=== PATIENT | female | born 1995 ===

== ENCOUNTER 2016-05-13 02:14 | Emergency (ER) | payer OTHER ==
--- NOTE | 2016-05-13 03:13 | ED ---
Joana Colvin Anna, scribed for Scott Vega MD on 05/13/16 at 0226 . Substance Abuse/Use - HPI Summary HPI Summary: Patient is a 20 y/o female BIBA to [facility] presenting with substance abuse that began this evening. EMS reports that the patients friends said the patient had been drinking. LEVEL 5 CAVEAT UNABLE TO OBTAIN FULL HISTORY DUE TO ALTERED MENTAL STATUS. - History Of Current Complaint Stated Complaint: ALCOHOL CONSUMPTION Time Seen by Provider: 05/13/16 02:15 Hx Obtained From: EMS - Allergies/Home Medications Allergies/Adverse Reactions: Allergies Allergy/AdvReac Type Severity Reaction Status Date / Time Unable to Obtain Allergy Verified 05/13/16 02:39 PMH/Surg Hx/FS Hx/Imm Hx Previously Healthy: Yes - Family History Family History: LEVEL 5 CAVEAT UNABLE TO OBTAIN FULL HISTORY DUE TO ALTERED MENTAL STATUS. - Social History Occupation: Student Lives: With Family Alcohol Use: Occasionally Review of Systems - ROS Summary Review of Systems Summary: LEVEL 5 CAVEAT UNABLE TO OBTAIN FULL HISTORY DUE TO ALTERED MENTAL STATUS. Constitutional: Other - Substance use All Other Systems Reviewed And Are Negative: No Physical Exam Triage Information Reviewed: Yes Vital Signs On Initial Exam: Initial Vitals BP 109/68 05/13/16 02:24 Vital Signs Reviewed: Yes Appearance: Positive: Well-Appearing, No Pain Distress Skin: Positive: Warm Head/Face: Positive: Normal Head/Face Inspection Eyes: Positive: REDDY ENT: Positive: Hearing grossly normal Neck: Positive: Supple Respiratory/Lung Sounds: Positive: Breath Sounds Present Cardiovascular: Positive: RRR Abdomen Description: Positive: Nontender, Soft Bowel Sounds: Positive: Present Musculoskeletal: Positive: Strength/ROM Intact Neurological: Positive: Sensory/Motor Intact, Alert, Oriented to Person Place, Time, Normal Gait Psychiatric: Positive: Affect/Mood Appropriate Diagnostics - Vital Signs Vital Signs Temp Pulse Resp BP Pulse Ox 05/13/16 02:59 85 98 05/13/16 02:32 97.4 F 78 16 111/73 98 05/13/16 02:30 77 111/73 98 05/13/16 02:26 75 98 05/13/16 02:24 109/68 - Laboratory Lab Results: Lab Results 05/13/16 Range/Units 02:21 Beta HCG, Quant 4.66 mIU/mL Serum Alcohol 189 H (<10) mg/dL Lab Statement: Any lab studies that have been ordered have been reviewed, and results considered in the medical decision making process. Re-Evaluation - Re-Evaluation First Eval Re-Evaluation Time: 06:09 Change: Improved Course/Dx - Course Assessment/Plan: Patient is a 20 y/o female BIBA to [facility] presenting with substance abuse that began this evening. EMS reports that the patients friends said the patient had been drinking. Labs reveal serum alcohol level of 189. Patient will be discharged. Patient is agreeable with this plan. - Diagnoses Provider Diagnoses: Alcohol intoxication Discharge - Discharge Plan Condition: Improved Disposition: HOME Patient Education Materials: Alcohol Intoxication (ED) Referrals: [facility] KAROLINA Lyles [Medical Doctor] - Additional Instructions: Return to ED for new or worsening symptoms. The documentation as recorded by the Joana campoverde Anna accurately reflects the service I personally performed and the decisions made by me, Scott Vega MD.
[2016-05-13 07:03] VITALS: BP 119/86
== END 2016-05-13 07:03 | disposition home or self-care (01) ==
LOC: ED 02:14
DX: F10.129 Alcohol abuse with intoxication, unspecified (principal); Y90.6 Blood alcohol level of 120-199 mg/100 ml
CPT/HCPCS: 36415; 80320; 84702; 99282; G0480